=== PATIENT | male | born 1985 | race Caucasian/White ===

== ENCOUNTER 2019-06-20 01:44 | Observation (INO) | payer SELFPAY ==
[~2019-06-20] VITALS: Ht 182.9 cm; Wt 122.7 kg
[2019-06-20] MEDS ORDERED: SIMVASTATIN (01:49)
[2019-06-20] MEDS ORDERED: ZANAFLEX (01:49)
[2019-06-20] MEDS ORDERED: GABAPENTIN (01:49)
[2019-06-20] MEDS ORDERED: PRINIVIL10 MG PO (01:49)
[2019-06-20 02:32] LABS: CHOL - HDL RATIO 11.6 ratio (2.3-4.9); CHOLESTEROL, TOTAL 243 mg/dL (0-200); CKMB 0.5 U/L (0.0-3.6); CREATINE KINASE 77 UL (21-232); HDL CHOLESTEROL 21 mg/dL (32-96); PRO BNP 4 pg/mL (0-125); TRIGLYCERIDE 761 mg/dL (30-200); TROPONIN-I < 0.017 ng/mL (0.000-0.060)
[2019-06-20] MEDS ORDERED: GABAPENTIN100 MG PO (02:46)
[2019-06-20] MEDS ORDERED: LISINOPRIL10 MG PO (02:46)
[2019-06-20 02:53] LABS: UDS - AMPHET NEGATIVE QUAL (NEGATIVE); UDS - BARB NEGATIVE QUAL (NEGATIVE); UDS - BENZO NEGATIVE QUAL (NEGATIVE); UDS - COCAINE NEGATIVE QUAL (NEGATIVE); UDS - OPIATE NEGATIVE QUAL (NEGATIVE); UDS - PCP NEGATIVE QUAL (NEGATIVE); UDS - THC NEGATIVE QUAL (NEGATIVE)
[2019-06-20 03:00] VITALS: BP 124/72; Ht 182.9 cm; Wt 122.7 kg
--- NOTE | 2019-06-20 07:00 | NUR ---
RECEIVED REPORT. ASSUMED CARE OF PATIENT. PAITNET RESTING WELL IN BED WITH EYES CLOSED. EASILY AROUSED. RESP EVEN AND UNLABORED. NO DISTRESS. PATIENT WITH FEMALE WITH EYES CLOSED IN BED. JUST LEFT PATIENT ROOM FROM ROUNDS THIS AM.
[2019-06-20 08:02] VITALS: BP 100/50
--- NOTE | 2019-06-20 08:17 | NUR ---
PATIENT INFORMED OF CARDIAC LEXISCAN THAT WILL BE DONE IN ABOUT 20 MINUTES PER JENNA IN NUCLE[facility]. NO DISTRESS. CALL LIGHT WITHIN REACH.
[2019-06-20 08:39] LABS: CKMB 0.6 U/L (0.0-3.6); CREATINE KINASE 63 UL (21-232)
[2019-06-20 08:40] LABS: TROPONIN-I < 0.017 ng/mL (0.000-0.060)
--- NOTE | 2019-06-20 10:20 | NUR ---
PATIENT OFF UNIT FOR LEXISCAN AT THIS TIME.
--- NOTE | 2019-06-20 10:40 | NUR ---
DIET REQUEST PLACED AT THIS TIME. SPOKE WITH RANDY AND SHE IS ABOUT TO BRING UP THE REQUEST AT THIS TIME.
[2019-06-20 11:19] VITALS: BP 123/65
--- NOTE | 2019-06-20 13:15 | NUR ---
PATIENT OOB TO SHOWER. LINENS CHANGED. NO DISTRESS. PATIENT AT BEDSIDE.
[2019-06-20 13:42] LABS: CKMB 0.3 U/L (0.0-3.6); CREATINE KINASE 58 UL (21-232)
[2019-06-20 13:53] LABS: TROPONIN-I < 0.017 ng/mL (0.000-0.060)
[2019-06-20 15:08] VITALS: BP 98/45
--- NOTE | 2019-06-20 16:36 | NUR ---
SPOKE WITH TO CLARIFY FROM PROGRESS NOTE FOR TODAY THAT IT IS OKAY FOR PATIENT TO DISCHARGE TO HOME. ORDERS RECIEVED AND INPUTTED FOR DISCHARGE. PATIENT TO FOLLOW UP WITH HIS PCP IN ONE WEEK.
--- NOTE | 2019-06-20 17:15 | NUR ---
18 GAUGE IV REMOVED FROM RIGHT AC AT THIS TIME. CATHETER TIP INTACT. NO BLEEDING FROM SITE. 2X2 GAUZE APPLIED AND SECURED WITH BANDAID.
--- NOTE | 2019-06-20 17:30 | NUR ---
TELEMETRY REMOVED, DISCHARGE INSTRUCTIONS PROVIDED. PATIENT VERBALIZED UNDERSTANDING OF ALL INSTRUCTIONS PROVIDED. COUNSELED PATIENT ON CONSUMPTION OF PROCESSED FOODS LIKE BOLOGNIA AND HOT DOGS DUE TO ELEVATED TRIGLYCERIDES. ALSO COUNSELED PATIENT ABOUT HIS DAILY USE OF [employer] DRINKS. PATIENT AGREES TO FOLLOW UP WITH HIS LOCAL PCP IN [facility].
--- NOTE | 2019-06-20 17:36 | NUR ---
PATIENT LEFT UNIT VIA WHEELCHAIR AT THIS TIME WITH ALL PERSONAL BELONGINGS. PATIENT IN NO DISTRESS UPON LEAVING UNIT. PATIENT DISCHARGED TO HOME WITH HIS .
--- NOTE | 2019-06-21 08:09 | MORECARE ---
CASE MANAGEMENT DISCHARGE SUMMARY PATIENT: JOSSELIN VALENZUELA UNIT: [id number] ADM DATE: 06/20/19 AGE: 34 : 85 SEX: M ROOM/BED: D.2133 AUTHOR: SHREYA SOLIS PHYSICIAN: REFERRING PHYSICIAN: ANGELIC SANTACRUZ M.D. DATE OF SERVICE: 06/21/19 Discharge Plan Patient Name: JOSSELIN VALENZUELA Facility: [facility]:[place] : 1985 Planned Disposition: Home Anticipated Discharge Date: 06/20/19 Discharge Date: 06/20/2019 Expected LOS: 1 Initial Reviewer: [email or web address] Initial Review Date: 06/21/2019 Generated: 06/21/19 9:09 am Patient Name: JOSSELIN VALENZUELA Page [id number] at [id number] All edits/amendments must be made on the electronic document DICTATION DATE: 06/21/19 08 FUR PULLER: DAVID 06/21/19 08 RPT#: [id number] DC DATE:06/20/19 STATUS: DIS IN [facility] [address] [place] [address] END OF REPORT
== END 2019-06-20 17:37 | disposition home or self-care (01) ==
LOC: D.ER 01:44 → D.M2 02:06 → OBSVTIME 02:06 → D.M2 02:06
PROVIDERS: Emergency Medicine; ADMIT Internal Medicine Cardiovascular Disease; ATTEND Internal Medicine Cardiovascular Disease
DX: I20.0 Unstable angina (principal); F17.200 Nicotine dependence, unspecified, uncomplicated; I10 Essential (primary) hypertension; E78.5 Hyperlipidemia, unspecified; Z82.49 Family history of ischemic heart disease and other diseases of the circulatory system